=== PATIENT | male | born 1960 | race Two or more races ===

== ENCOUNTER → 2024-03-10 | Outpatient (CLI) | payer MEDICAID, SELFPAY ==
--- NOTE | 2024-03-10 17:00 | XR_ITS ---
Examination: CT pelvis without intravenous contrast. 2-D sagittal and coronal reconstructions. Date and time of exam:March 10, 2024 1447 hours INDICATIONS: Diagnosis malignant neoplasm prostate December 2023 staging CTDI: vol (mGy) :9.48 DLP: (mGycm) : 348 Technique: Multiple 3 mm axial sections of the pelvis have been obtained with the 64 slice high resolution scanner. 2-D sagittal and coronal reconstructions. Low dose protocols were performed. One or more of the following dose reduction techniques were used; automated exposure control, adjustment of the mA and/or KV according to patient size, use of iterative reconstruction technique. Findings: 8mm fat-containing umbilical hernia No bowel obstruction Normal seminal vesicles Transverse prostate dimension 3.9 cm Small fat-containing inguinal hernias No common iliac and external iliac internal iliac or common femoral lymphadenopathy No osteoblastic metastatic disease IMPRESSION: No findings of metastatic disease
== END | disposition home or self-care (01) ==
PROVIDERS: Referring Provider Surgery; Visit Provider Surgery
DX: C61 Malignant neoplasm of prostate (principal)
CPT/HCPCS: 72192

== ENCOUNTER → 2024-03-15 | Outpatient (CLI) | payer MEDICAID, SELFPAY ==
--- NOTE | 2024-03-15 12:30 | XR_ITS ---
Examination: Bone scan whole body, radioisotope Date and time of exam: March 15, 2024 12:33 PM INDICATIONS: Prostate carcinoma diagnosis, elevated PSA this month Technique: Study has been performed with intravenous administration of 23.8 mci 99M technetium MDP. Anterior, posterior whole body images are obtained. Images have been obtained including the lower extremities. Findings: Subtle increased uptake bilateral anterior ribs Subtle increased uptake right cranial vault Bilateral shoulder uptake IMPRESSION: Positive bone scan although not diagnostic for metastatic disease Recommend bilateral rib series, bilateral shoulder series, 4 views skull series follow-up
== END | disposition home or self-care (01) ==
PROVIDERS: PCP Internal Medicine; Referring Provider Surgery; Visit Provider Surgery
DX: R93.7 Abnormal findings on diagnostic imaging of other parts of musculoskeletal system (principal); C61 Malignant neoplasm of prostate
CPT/HCPCS: 78306; A9503

== ENCOUNTER 2024-05-20 13:17 | Outpatient (RCR) | payer MEDICARE, MEDICAID, SELFPAY ==
--- NOTE | 2024-05-05 13:09 | CTCCONSULT_ITS ---
[facility] [address], [place] [address] Consultation Note Date: 05/05/2024 MR#: [id number] Name: ARTEMIO ORTIZ : 1960 Dx: C61 Malignant neoplasm of prostate Referring physician. Malcolm Matamoros MD Reason for consultation. Patient with group 1 and 2 prostate CA referred for radiation oncology consultation. History of Present Illness: Patient is a 64-year-old gentleman with symptoms of prostatism with elevated PSA of 14.1. Had biopsy of his prostate performed 01/27/2024 revealing Cos Cob's grade 7 (3+4 ) group 2 right lobe of prostate and grade 6 (3+3) group 1 and left lobe prostate. Imaging studies pelvic CT 03/10/2024 and bone scan 03/15/2024 showed nonspecific uptake in shoulder skull and ribs, not diagnostic for metastatic disease. Patient had Lupron injection about 3 weeks ago in March according to family. Patient now referred for radiation oncology consultation. Patient is not wanting to have surgery for this problem. Past Medical History: Diabetes mellitus Meds. Ibuprofen metformin gabapentin Allergies none to meds Social History: Patient [place]-speaking denies drinking smoking noncontributory Review of Systems: Noncontributory Physical Exam: General: Adequate nourished appearing gentleman in no acute distress HEENT: Atraumatic normocephalic extraocular is intact no oral lesion no cervical or supraclavicular a adenopathy CV: Chest clear to auscultation heart regular rate and rhythm ABD: Soft no rigidity tenderness EXT: No signs of clubbing edema. Assessment: Patient with PSA 14.1 group 2 right lower prostate and group 1 left of the prostate adeno CA. Plan:1. Patient is already receiving ADT under Dr. Matamoros's direction. 2. Prostate radiation for intermediate risk, 7560 cGy. Side effects explained. 3. Thank you very much for allowing me to evaluate and manage this patient. Cc: Malcolm Matamoros MD Electronically signed by: Taco Ramirez MD, DABR 05/05/2024 1:07 PM
--- NOTE | 2024-05-05 13:11 | CTCTXPLN_ITS ---
[facility] [place] [address] [place], [place] [address] Physician Clinical Treatment Planning Note Date of Service: 05/05/2024 Name: ARTEMIO Wilson.: 1960 The patient has agreed to proceed with Radiation therapy. Tests and supporting medical records were interpreted to assist in defining the tumor location and extent of disease. Further imaging will be necessary to contour and delineate the volume to which the XRT will be provided. A. Treatment Intent: Curative B. Modality: 10 MV C. Requested Technique: VMAT D. Treatment Site: Prostate E. Critical structures to be contoured on plan: F. In order to accomplish this plan, I am ordering/Prescribing the followin. Simulations (s) will be performed to accomplish a reproducible treatment position, to determine optimal treatment portals/beam arrangements, to design beam modifying devices and verify treatment portals on patient prior to the commencement of Radiation Therapy. Pelvis 2. Devices; for immobilization and beam shaping: Vac-Annalise 3. CT Guidance for placement of XRT sanchez Scan area: 4. Portal images Frequency: 5. Invivo transit dose measurement once per week on all VMAT patients. 6. Special Physics Consult Requested for: 7. Other requests: G. Dose Objectives: Electronically signed by: Taco Ramirez M.D. 05/05/2024 1:08 PM
--- NOTE | 2024-05-05 13:14 | CTCTXPLNST_ITS ---
Radiation Oncology Treatment Planning Sheet Name: ARTEMIO ORTIZ MR#: [id number] : 1960 Dx: C61 Malignant neoplasm of prostate Date of Service: 05/05/2024 Account #: ?? Pt Treatment Intent: curative palliative other: Stage: Procedure CPT # Ordered Spec. Procedure 42820 Ng Complex (set-up) 95522 pelvis 1 Ng Simple 93239 IMRT Plan 26502 1 MLC Devices VMAT 32476 3 Ng 3 D 69091 TRTMT dev Complex 36999 vaklok 1 TRTMT dev simple 91061 Basic Eric 07431 6 Special Dosimetry 60202 Spec Physics 52195 Port Films 54210 SRS Cranial/1FX 89889 SBR 5 FX or Less /ex: 5 = 5 fx 97560 IMRT Simple 87756 7560 42 IMRT Complex 83101 IGRT 60912 35 Rad del com 6-10 04240 Rad del com 11- 33638 Cont Med Physics 13247 8 Treatment Planning 18948 1 Rad del com 20 mev 37496 Rad del inter 6-10 66018 Rad del inter 11 21767 Rad del simple 6-10 56959 Rad del simple 11-19 18092 Special Port Plan 18100 TRTMT dev inter 82186 Isodose Complex 36778 Isodose simple 40169 Resp Motion Mgmt Simulation 54104 Placement of Fiducial Markers 78787 Electronically Signed By: Taco Ramirez MD, DABR 05/05/2024 1:12 PM
== END 2024-05-28 23:59 | disposition home or self-care (01) ==
LOC: SCTC 13:17
PROVIDERS: Referring Provider Surgery; Visit Provider Radiology Therapeutic Radiology
DX: C61 Malignant neoplasm of prostate (principal)
CPT/HCPCS: 77014; 77290; 77300; 77301; 77334; 77338; 99213; G0463